=== PATIENT | male | born 1945 | race Caucasian/White ===

== ENCOUNTER 2018-06-12 09:04 | Observation (INO) ==
[2018-06-12] MEDS ORDERED: NITROGLYCERIN 2% OINT 1 INCH/GM PACK TOP STA (10:08)
[2018-06-12] MEDS ORDERED: ENOXAPARIN 80 MG/0.8 ML SYRINGE SUBCUT STA (10:08)
[2018-06-12] MEDS ORDERED: ASPIRIN CHEW 81 MG TABLET PO STA (10:08)
[2018-06-12 10:11] LABS: Basophils # 0.1 10*3/uL (0.0-0.2); Basophils % 0.8 % (0.0-0.8); Eosinophils # 0.2 10*3/uL (0.0-0.87); Eosinophils % 2.5 % (0.00-10.9); Hematocrit 35.3 VOL% (42.0-52.0); Hemoglobin 11.7 GM/DL (14.0-18.0); Immature Granulocytes % 0.8 %; Immature Granulocytes Absolute 0.06 #; Lymphocytes # 1.4 10*3/uL (1.4-4.0); Lymphocytes % 17.1 % (21.2-54.2); Mean Corpuscular HGB Conc 33.1 GM/DL (32-36); Mean Corpuscular Hemoglobin 31 PG (27-34); Mean Corpuscular Volume 94.1 FL (87-102); Mean Platelet Volume 9.1 FL (9.6-12.0); Monocytes # 0.6 10*3/uL (0.11-0.8); Monocytes % 7.1 % (1.7-12.7); Neutrophils # 5.7 10*3/uL (1.4-7.4); Neutrophils % 71.7 % (38.7-73.9); Platelet Count 226 T/CUMM (130-400); Red Blood Count 3.75 MC/CUMM (3.8-5.5); White Blood Count 7.9 T/CUMM (4-12)
[2018-06-12] MEDS ORDERED: ASPIRIN 325 MG TABLET ONE (10:14)
[2018-06-12 10:33] LABS: Alanine Aminotransferase 20 U/L (16-61); Albumin 3.7 G/DL (3.4-5.0); Alkaline Phosphatase 91 U/L (45-117); Aspartate Amino Transferase 17 U/L (0-37); Blood Urea Nitrogen 13 MG/DL (7-18); Calcium 8.7 MG/DL (8.5-10.1); Glucose 101 MG/DL (74-106); Osmolality,Calculated 278.4 MOS/KG (273-304); Potassium 4.3 MMOL/L (3.5-5.1); Sodium 140 MMOL/L (136-145); Total Protein 7.1 G/DL (6.4-8.3)
[2018-06-12 10:36] LABS: Troponin I 0.151 NG/ML (0.00-0.045)
[2018-06-12] MEDS ORDERED: ONDANSETRON 4 MG/2 ML VIAL IV PRN (12:17)
[2018-06-12] MEDS ORDERED: MAGNESIUM SULF RIDER 2 GM in PREMIX 1 EACH IV PRN ×2 (12:17→13:15)
[2018-06-12] MEDS ORDERED: ACETAMINOPHEN 325 MG TABLET PO PRN (12:17)
[2018-06-12] MEDS ORDERED: POTASSIUM CHLORIDE 20 MEQ TABLET PO PRN (12:17)
[2018-06-12] MEDS ORDERED: MAGNESIUM SULF RIDER 4 GM in PREMIX 1 EACH IV PRN (12:17)
[2018-06-12] MEDS ORDERED: BISACODYL 5 MG TABLET PO PRN (12:17)
[2018-06-12] MEDS ORDERED: diphenhydrAMINE CAP 25 MG CAPSULE PO PRN (12:17)
[2018-06-12] MEDS ORDERED: NITROGLYCERIN SL 0.4 MG TABLET SL PRN (12:50)
[2018-06-12] MEDS ORDERED: POTASSIUM CHLORIDE RIDER 10 MEQ in PREMIX 1 EACH IV PRN (13:15)
[2018-06-12 15:17] LABS: Troponin I 0.119 NG/ML (0.00-0.045)
[2018-06-12] MEDS ORDERED: INFLUENZA VIRUS VACCINE 0.5 ML SYRINGE IM ONE (15:27)
[2018-06-12] MEDS: CLOPIDOGREL 75 MG TABLET PO SCH (20:57)
[2018-06-12] MEDS: glyBURIDE 5 MG TABLET PO SCH (20:57)
[2018-06-12] MEDS: CARVEDILOL 12.5 MG TABLET PO SCH (20:57)
[2018-06-12] MEDS: NIACIN 500 MG TABLET PO SCH (20:57)
[2018-06-12] MEDS: SIMVASTATIN 20 MG TABLET PO SCH (20:57)
[2018-06-12] MEDS: rOPINIRole 1 MG TABLET PO SCH (20:58)
[2018-06-12] MEDS: ASPIRIN CHEW 81 MG TABLET PO SCH (20:58)
[2018-06-12] MEDS: AMITRIPTYLINE 25 MG TABLET PO SCH (20:58)
[2018-06-12] MEDS: INSULIN NPH 100 UNIT/ML SUBCUT SCH (20:59)
[2018-06-13 04:41] LABS: Basophils % 0.7 % (0.0-0.8); Eosinophils # 0.2 10*3/uL (0.0-0.87); Eosinophils % 3.1 % (0.00-10.9); Hematocrit 32.1 VOL% (42.0-52.0); Hemoglobin 10.3 GM/DL (14.0-18.0); Immature Granulocytes % 0.3 %; Immature Granulocytes Absolute 0.02 #; Lymphocytes # 1.3 10*3/uL (1.4-4.0); Lymphocytes % 21.2 % (21.2-54.2); Mean Corpuscular HGB Conc 32.1 GM/DL (32-36); Mean Corpuscular Hemoglobin 30 PG (27-34); Mean Corpuscular Volume 94.1 FL (87-102); Mean Platelet Volume 9.2 FL (9.6-12.0); Monocytes # 0.8 10*3/uL (0.11-0.8); Monocytes % 12.8 % (1.7-12.7); Neutrophils # 3.8 10*3/uL (1.4-7.4); Neutrophils % 61.9 % (38.7-73.9); Platelet Count 197 T/CUMM (130-400); Red Blood Count 3.41 MC/CUMM (3.8-5.5); Red Cell Distribution Width 13.7 % (9.3-17.3); White Blood Count 6.1 T/CUMM (4-12)
[2018-06-13 05:09] LABS: Calcium 7.8 MG/DL (8.5-10.1); Osmolality,Calculated 287.5 MOS/KG (273-304); Potassium 4.6 MMOL/L (3.5-5.1); Risk Ratio 2.95; VLDL CHOLESTEROL 22.4 MG/DL
[2018-06-13] MEDS: INSULIN NPH 100 UNIT/ML SUBCUT SCH ×2 (08:44→21:47)
[2018-06-13] MEDS: glyBURIDE 5 MG TABLET PO SCH ×2 (08:46→21:48)
[2018-06-13] MEDS: PANTOPRAZOLE 40 MG TABLET PO SCH (08:47)
[2018-06-13] MEDS: CARVEDILOL 12.5 MG TABLET PO SCH ×2 (08:47→18:29)
[2018-06-13] MEDS ORDERED: LOSARTAN/HCTZ 50-12.5 MG TABLET PO SCH (09:00)
[2018-06-13] MEDS ORDERED: amLODIPine 5 MG TABLET PO SCH (09:00)
[2018-06-13] MEDS ORDERED: diphenhydrAMINE CAP 25 MG CAPSULE PO ONE (13:15)
[2018-06-13] MEDS ORDERED: DIAZEPAM 5 MG TABLET PO ONE (13:15)
[2018-06-13] MEDS ORDERED: LIDOCAINE 1% 20 ML VIAL ONE (16:06)
[2018-06-13] MEDS ORDERED: fentaNYL 100 MCG/2 ML VIAL ONE (17:03)
[2018-06-13] MEDS ORDERED: MIDAZOLAM 2 MG/2 ML VIAL ONE (17:03)
[2018-06-13] MEDS ORDERED: HEPARIN 5,000 UNIT/1 ML VIAL ONE (17:04)
[2018-06-13] MEDS ORDERED: FUROSEMIDE 20 MG/2 ML VIAL IV ONE (18:42)
[2018-06-13] MEDS: rOPINIRole 1 MG TABLET PO SCH (21:47)
[2018-06-13] MEDS: LOSARTAN 25 MG TABLET PO SCH (21:48)
[2018-06-13] MEDS: NIACIN 500 MG TABLET PO SCH (21:48)
[2018-06-13] MEDS: CLOPIDOGREL 75 MG TABLET PO SCH (21:48)
[2018-06-13] MEDS: SIMVASTATIN 20 MG TABLET PO SCH (21:48)
[2018-06-13] MEDS: AMITRIPTYLINE 25 MG TABLET PO SCH (21:48)
[2018-06-13] MEDS: ASPIRIN CHEW 81 MG TABLET PO SCH (21:48)
[2018-06-13] MEDS: ZALEPLON 5 MG CAPSULE PO PRN (21:48)
[2018-06-14] MEDS: CARVEDILOL 25 MG TABLET PO SCH ×3 (00:59→17:10)
[2018-06-14 03:33] LABS: Basophils % 0.5 % (0.0-0.8); Eosinophils # 0.3 10*3/uL (0.0-0.87); Eosinophils % 4.4 % (0.00-10.9); Hematocrit 34.8 VOL% (42.0-52.0); Hemoglobin 11.5 GM/DL (14.0-18.0); Immature Granulocytes % 0.3 %; Immature Granulocytes Absolute 0.02 #; Lymphocytes # 1.4 10*3/uL (1.4-4.0); Lymphocytes % 23.3 % (21.2-54.2); Mean Corpuscular Hemoglobin 31 PG (27-34); Mean Corpuscular Volume 93.8 FL (87-102); Mean Platelet Volume 9.3 FL (9.6-12.0); Monocytes # 0.7 10*3/uL (0.11-0.8); Monocytes % 10.9 % (1.7-12.7); Neutrophils # 3.7 10*3/uL (1.4-7.4); Neutrophils % 60.6 % (38.7-73.9); Platelet Count 190 T/CUMM (130-400); Red Blood Count 3.71 MC/CUMM (3.8-5.5); Red Cell Distribution Width 13.7 % (9.3-17.3); White Blood Count 6.2 T/CUMM (4-12)
[2018-06-14 03:54] LABS: Calcium 8.3 MG/DL (8.5-10.1); Osmolality,Calculated 280.8 MOS/KG (273-304); Potassium 4.1 MMOL/L (3.5-5.1)
[2018-06-14] MEDS ORDERED: FUROSEMIDE 20 MG/2 ML VIAL IV SCH ×2 (09:00→12:09)
[2018-06-14] MEDS: glyBURIDE 5 MG TABLET PO SCH ×2 (09:17→20:36)
[2018-06-14] MEDS: SPIRONOLACTONE 25 MG TABLET PO SCH ×2 (09:18→20:35)
[2018-06-14] MEDS: LOSARTAN 25 MG TABLET PO SCH ×2 (09:19→20:35)
[2018-06-14] MEDS: PANTOPRAZOLE 40 MG TABLET PO SCH (09:19)
[2018-06-14] MEDS: INSULIN NPH 100 UNIT/ML SUBCUT SCH ×2 (09:19→20:36)
[2018-06-14] MEDS ORDERED: FUROSEMIDE 40 MG/4 ML VIAL IV ONE (12:06)
[2018-06-14] MEDS ORDERED: AZITHROMYCIN 250 MG TABLET PO ONE (12:30)
[2018-06-14] MEDS: INSULIN REGULAR 100 UNIT/ML SUBCUT SCH ×2 (17:10→20:36)
[2018-06-14] MEDS: rOPINIRole 1 MG TABLET PO SCH (20:35)
[2018-06-14] MEDS: ZALEPLON 5 MG CAPSULE PO PRN (20:35)
[2018-06-14] MEDS: AMITRIPTYLINE 25 MG TABLET PO SCH (20:35)
[2018-06-14] MEDS: SIMVASTATIN 20 MG TABLET PO SCH (20:35)
[2018-06-14] MEDS: ASPIRIN CHEW 81 MG TABLET PO SCH (20:36)
[2018-06-14] MEDS: NIACIN 500 MG TABLET PO SCH (20:36)
[2018-06-14] MEDS: CLOPIDOGREL 75 MG TABLET PO SCH (20:36)
[2018-06-15 04:08] LABS: Calcium 7.8 MG/DL (8.5-10.1); Osmolality,Calculated 282.3 MOS/KG (273-304); Potassium 3.7 MMOL/L (3.5-5.1)
[2018-06-15 04:11] LABS: Calcium 7.6 MG/DL (8.5-10.1); Osmolality,Calculated 282.3 MOS/KG (273-304); Potassium 3.6 MMOL/L (3.5-5.1)
[2018-06-15] MEDS: INSULIN REGULAR 100 UNIT/ML SUBCUT SCH (07:56)
[2018-06-15 08:00] VITALS: BP 112/53
[2018-06-15] MEDS: PANTOPRAZOLE 40 MG TABLET PO SCH (08:47)
[2018-06-15] MEDS: SPIRONOLACTONE 25 MG TABLET PO SCH (08:47)
[2018-06-15] MEDS: CARVEDILOL 25 MG TABLET PO SCH (08:48)
[2018-06-15] MEDS: glyBURIDE 5 MG TABLET PO SCH (08:48)
[2018-06-15] MEDS: LOSARTAN 25 MG TABLET PO SCH (08:48)
[2018-06-15] MEDS: INSULIN NPH 100 UNIT/ML SUBCUT SCH (08:49)
[2018-06-15] MEDS ORDERED: metFORMIN 500 MG TABLET PO SCH (09:00)
[2018-06-15] MEDS ORDERED: AZITHROMYCIN 250 MG TABLET PO SCH (09:00)
== END 2018-06-15 11:10 | disposition home or self-care (01) ==
LOC: N.EDINP 09:04 → N.ED 09:04 → N.TELEN 14:49
PROVIDERS: ADMIT Internal Medicine Cardiovascular Disease; ATTEND Internal Medicine Cardiovascular Disease

== ENCOUNTER 2022-02-27 10:01 | Inpatient (IN) ==
[2022-02-27] MEDS ORDERED: MORPHINE 2 MG/1 ML SYRINGE IV PRN (11:11)
[2022-02-27] MEDS ORDERED: BISACODYL 5 MG TABLET PO PRN (11:11)
[2022-02-27] MEDS ORDERED: ALUMINUM/MAGNES/SIMETH MAX STR 30 ML UDCUP PO PRN (11:11)
[2022-02-27] MEDS ORDERED: ONDANSETRON 4 MG/2 ML VIAL IV PRN (11:11)
[2022-02-27] MEDS ORDERED: diphenhydrAMINE CAP 25 MG CAPSULE PO PRN (11:11)
[2022-02-27] MEDS ORDERED: ZALEPLON 5 MG CAPSULE PO PRN (11:11)
[2022-02-27] MEDS ORDERED: ACETAMINOPHEN 325 MG TABLET PO PRN (11:11)
[2022-02-27] MEDS ORDERED: POTASSIUM CHLORIDE 20 MEQ TABLET PO PRN (11:14)
[2022-02-27] MEDS ORDERED: MAGNESIUM SULF RIDER 4 GM/100 ML PREMIX IV PRN (11:14)
[2022-02-27] MEDS ORDERED: GLUCAGON 1 MG VIAL IM PRN (11:14)
[2022-02-27] MEDS ORDERED: MAGNESIUM SULF RIDER 2 GM/50 ML PREMIX IV PRN (11:14)
[2022-02-27] MEDS ORDERED: DEXTROSE 10% 250 ML BAG IV PRN (12:21)
[2022-02-27 13:27] LABS: Basophils % 0.1 % (0.0-0.8); Hemoglobin 10.9 GM/DL (14.0-18.0); Immature Granulocytes % 1.5 %; Immature Granulocytes Absolute 0.21 #; Lymphocytes # 0.5 10*3/uL (1.4-4.0); Lymphocytes % 3.8 % (21.2-54.2); Mean Corpuscular HGB Conc 32.1 GM/DL (32-36); Mean Corpuscular Volume 97.1 FL (87-102); Mean Platelet Volume 10.3 FL (9.6-12.0); Monocytes # 1.2 10*3/uL (0.11-0.8); Monocytes % 8.5 % (1.7-12.7); Neutrophils % 86.1 % (38.7-73.9); Platelet Count 206 T/CUMM (130-400); White Blood Count 13.8 T/CUMM (4-12)
[2022-02-27 13:47] LABS: Albumin 2.6 G/DL (3.4-5.0); Bilirubin,Total 3.2 MG/DL (0.20-1.00); Calcium 8.6 MG/DL (8.5-10.1); Osmolality,Calculated 286.1 MOS/KG (273-304); Potassium 3.4 MMOL/L (3.5-5.1); Total Protein 6.7 G/DL (6.4-8.2)
[2022-02-27 14:10] LABS: Albumin 2.6 G/DL (3.4-5.0); Bilirubin,Direct 2.26 MG/DL (0.0-0.20); Bilirubin,Indirect 0.9 MG/DL (0.0-1.0); Bilirubin,Total 3.2 MG/DL (0.20-1.00); Free T4 (Free Thyroxine) 1.56 NG/DL (0.76-1.46); Total Protein 6.8 G/DL (6.4-8.2)
[2022-02-27 14:27] LABS: Anisocytosis 1+; Hypochromia 1+; Platelet Estimate Normal; Polychromasia Slight
[2022-02-27] MEDS: INSULIN REGULAR 100 UNIT/ML SUBCUT SCH ×2 (14:27→17:17)
[2022-02-27] MEDS: metOLazone 5 MG TABLET PO SCH (17:14)
[2022-02-27] MEDS: FUROSEMIDE 40 MG/4 ML VIAL IV SCH (17:15)
[2022-02-27] MEDS ORDERED: ALBUTEROL/IPRATROPIUM 3 ML NEB RESP TX PRN (18:15)
[2022-02-27] MEDS: INSULIN LISPRO 100 UNIT/ML SUBCUT SCH ×2 (19:26→21:52)
[2022-02-27] MEDS: cefTRIAXone 1,000 MG in SODIUM CHLORIDE 0.9% 100 ML IV SCH ×2 (19:35→21:29)
[2022-02-27] MEDS ORDERED: ENOXAPARIN 40 MG/0.4 ML SYRINGE SUBCUT SCH (21:00)
[2022-02-27] MEDS ORDERED: INSULIN LISPRO 100 UNIT/ML SUBCUT SCH (21:00)
[2022-02-27 21:09] LABS: Bilirubin,Urine Negative (Negative); Blood, Urine Negative (Negative); Glucose,Urine (UA) 500 mg/dL (Negative); Ketones,Urine Negative (Negative); Nitrite,Urine Negative (Negative); Protein,Urine Negative (Negative); Urine Appearance Clear (Clear); Urine Color Yellow (Yellow); Urine Specific Gravity <= 1.005 (1.001-1.035); Urine pH 5.5 (4.5-8.0)
[2022-02-27 21:11] LABS: Mucus,Urine Occasional /LPF (Occasional); RBC,Urine 2 /HPF (0-4); Squamous Epithelial Cell,Urine Occasional /HPF (0-10)
[2022-02-27] MEDS: GABAPENTIN 400 MG CAPSULE PO SCH (21:28)
[2022-02-27] MEDS: carvediloL 3.125 MG TABLET PO SCH (21:28)
[2022-02-27] MEDS: APIXABAN 5 MG TABLET PO SCH (21:29)
[2022-02-27] MEDS: PRAMIPEXOLE 0.25 MG TABLET PO SCH (21:29)
[2022-02-27] MEDS: INSULIN GLARGINE 100 UNIT/ML SUBCUT SCH (21:52)
[2022-02-28] MEDS: INSULIN LISPRO 100 UNIT/ML SUBCUT SCH ×6 (01:17→20:29)
[2022-02-28 04:52] LABS: Basophils # 0.1 10*3/uL (0.0-0.2); Basophils % 0.4 % (0.0-0.8); Eosinophils % 0.1 % (0.00-10.9); Hematocrit 32.3 VOL% (42.0-52.0); Hemoglobin 10.6 GM/DL (14.0-18.0); Immature Granulocytes Absolute 0.41 #; Lymphocytes # 1.2 10*3/uL (1.4-4.0); Lymphocytes % 8.9 % (21.2-54.2); Mean Corpuscular HGB Conc 32.8 GM/DL (32-36); Mean Corpuscular Volume 93.9 FL (87-102); Mean Platelet Volume 10.7 FL (9.6-12.0); Monocytes # 1.5 10*3/uL (0.11-0.8); Monocytes % 11.1 % (1.7-12.7); Neutrophils % 76.5 % (38.7-73.9); Platelet Count 222 T/CUMM (130-400); Red Blood Count 3.44 MC/CUMM (3.8-5.5); Red Cell Distribution Width 14.8 % (9.3-17.3); White Blood Count 13.7 T/CUMM (4-12)
[2022-02-28 05:17] LABS: Albumin 2.4 G/DL (3.4-5.0); Bilirubin,Total 2.3 MG/DL (0.20-1.00); Calcium 8.4 MG/DL (8.5-10.1); Osmolality,Calculated 272.7 MOS/KG (273-304); Potassium 2.8 MMOL/L (3.5-5.1); Risk Ratio 7.14; Total Protein 6.1 G/DL (6.4-8.2); VLDL Cholesterol 22.4 MG/DL
[2022-02-28] MEDS ORDERED: GLUCAGON 1 MG VIAL IM PRN (06:15)
[2022-02-28] MEDS ORDERED: DEXTROSE 50% 25 GM/50 ML VIAL IV PRN (06:15)
[2022-02-28] MEDS ORDERED: LEVOTHYROXINE 50 MCG TABLET PO SCH (06:30)
[2022-02-28] MEDS ORDERED: POTASSIUM CHLORIDE 20 MEQ TABLET PO ONE (08:10)
[2022-02-28] MEDS: ISOSORBIDE MONONITRATE 30 MG TABLET PO SCH (09:48)
[2022-02-28] MEDS: APIXABAN 5 MG TABLET PO SCH ×2 (09:48→20:25)
[2022-02-28] MEDS: carvediloL 3.125 MG TABLET PO SCH ×2 (09:48→20:24)
[2022-02-28] MEDS: metOLazone 5 MG TABLET PO SCH (09:48)
[2022-02-28] MEDS: ASPIRIN EC 81 MG TABLET PO SCH (09:48)
[2022-02-28] MEDS: FUROSEMIDE 40 MG/4 ML VIAL IV SCH ×2 (09:48→17:37)
[2022-02-28] MEDS: DAPAGLIFLOZIN 10 MG TABLET PO SCH (09:48)
[2022-02-28] MEDS: PANTOPRAZOLE 40 MG TABLET PO SCH (09:48)
[2022-02-28] MEDS: AZITHROMYCIN 250 MG TABLET PO SCH (09:48)
[2022-02-28] MEDS: cefTRIAXone 2,000 MG in SODIUM CHLORIDE 0.9% 100 ML IV SCH (13:03)
[2022-02-28] MEDS ORDERED: metOLazone 5 MG TABLET PO SCH ×2 (14:30→15:30)
[2022-02-28] MEDS: GABAPENTIN 400 MG CAPSULE PO SCH (20:25)
[2022-02-28] MEDS: PRAMIPEXOLE 0.25 MG TABLET PO SCH (20:26)
[2022-02-28] MEDS: INSULIN GLARGINE 100 UNIT/ML SUBCUT SCH (20:28)
[2022-03-01 05:34] LABS: Basophils # 0.1 10*3/uL (0.0-0.2); Basophils % 0.7 % (0.0-0.8); Eosinophils % 0.4 % (0.00-10.9); Hematocrit 33.5 VOL% (42.0-52.0); Hemoglobin 11.3 GM/DL (14.0-18.0); Immature Granulocytes % 2.4 %; Immature Granulocytes Absolute 0.25 #; Lymphocytes # 1.1 10*3/uL (1.4-4.0); Mean Corpuscular HGB Conc 33.7 GM/DL (32-36); Mean Corpuscular Volume 91.3 FL (87-102); Mean Platelet Volume 10.7 FL (9.6-12.0); Monocytes # 1.3 10*3/uL (0.11-0.8); Monocytes % 12.7 % (1.7-12.7); Neutrophils % 73.8 % (38.7-73.9); Platelet Count 238 T/CUMM (130-400); Red Blood Count 3.67 MC/CUMM (3.8-5.5); Red Cell Distribution Width 14.7 % (9.3-17.3); White Blood Count 10.5 T/CUMM (4-12)
[2022-03-01 06:01] LABS: Albumin 2.4 G/DL (3.4-5.0); Bilirubin,Total 1.7 MG/DL (0.20-1.00); Calcium 8.6 MG/DL (8.5-10.1); Osmolality,Calculated 278.8 MOS/KG (273-304); Potassium 2.6 MMOL/L (3.5-5.1); Total Protein 6.5 G/DL (6.4-8.2)
[2022-03-01] MEDS ORDERED: POTASSIUM CHLORIDE 20 MEQ TABLET PO ONE ×6 (06:57→13:00)
[2022-03-01] MEDS: FUROSEMIDE 40 MG/4 ML VIAL IV SCH ×2 (07:29→17:58)
[2022-03-01] MEDS: INSULIN LISPRO 100 UNIT/ML SUBCUT SCH ×4 (08:01→22:11)
[2022-03-01] MEDS: DAPAGLIFLOZIN 10 MG TABLET PO SCH (09:43)
[2022-03-01] MEDS: APIXABAN 5 MG TABLET PO SCH ×2 (09:44→22:08)
[2022-03-01] MEDS: SPIRONOLACTONE 25 MG TABLET PO SCH ×2 (09:44→22:09)
[2022-03-01] MEDS: AZITHROMYCIN 250 MG TABLET PO SCH (09:44)
[2022-03-01] MEDS: PANTOPRAZOLE 40 MG TABLET PO SCH (09:44)
[2022-03-01] MEDS: ASPIRIN EC 81 MG TABLET PO SCH (09:44)
[2022-03-01] MEDS: ISOSORBIDE MONONITRATE 30 MG TABLET PO SCH (09:45)
[2022-03-01] MEDS: carvediloL 3.125 MG TABLET PO SCH ×2 (09:45→22:09)
[2022-03-01] MEDS: cefTRIAXone 2,000 MG in SODIUM CHLORIDE 0.9% 100 ML IV SCH (09:49)
[2022-03-01 15:04] LABS: Calcium 8.4 MG/DL (8.5-10.1); Osmolality,Calculated 287.1 MOS/KG (273-304); Potassium 3.3 MMOL/L (3.5-5.1)
[2022-03-01] MEDS ORDERED: sitaGLIPtin 25 MG TABLET PO SCH (21:00)
[2022-03-01] MEDS ORDERED: INSULIN GLARGINE 100 UNIT/ML SUBCUT SCH (21:00)
[2022-03-01] MEDS: PRAMIPEXOLE 0.25 MG TABLET PO SCH (22:08)
[2022-03-01] MEDS: GABAPENTIN 400 MG CAPSULE PO SCH (22:09)
[2022-03-02 05:44] LABS: Basophils # 0.1 10*3/uL (0.0-0.2); Basophils % 0.8 % (0.0-0.8); Eosinophils % 0.3 % (0.00-10.9); Hematocrit 36.3 VOL% (42.0-52.0); Hemoglobin 11.7 GM/DL (14.0-18.0); Immature Granulocytes % 6.1 %; Immature Granulocytes Absolute 0.81 #; Lymphocytes # 0.9 10*3/uL (1.4-4.0); Lymphocytes % 6.8 % (21.2-54.2); Mean Corpuscular HGB Conc 32.2 GM/DL (32-36); Mean Platelet Volume 10.7 FL (9.6-12.0); Monocytes # 1.6 10*3/uL (0.11-0.8); Monocytes % 12.3 % (1.7-12.7); Neutrophils % 73.7 % (38.7-73.9); Platelet Count 282 T/CUMM (130-400); Red Blood Count 3.82 MC/CUMM (3.8-5.5); Red Cell Distribution Width 15.1 % (9.3-17.3); White Blood Count 13.3 T/CUMM (4-12)
[2022-03-02 05:59] LABS: Calcium 8.5 MG/DL (8.5-10.1); Osmolality,Calculated 277.7 MOS/KG (273-304)
[2022-03-02 06:02] LABS: Albumin 2.5 G/DL (3.4-5.0); Bilirubin,Direct 1.02 MG/DL (0.0-0.20); Bilirubin,Indirect 0.4 MG/DL (0.0-1.0); Bilirubin,Total 1.4 MG/DL (0.20-1.00); Total Protein 6.8 G/DL (6.4-8.2)
[2022-03-02 06:05] LABS: Albumin 2.5 G/DL (3.4-5.0); Bilirubin,Total 1.5 MG/DL (0.20-1.00); Calcium 8.7 MG/DL (8.5-10.1); Osmolality,Calculated 279.5 MOS/KG (273-304); Potassium 3.2 MMOL/L (3.5-5.1)
[2022-03-02 06:56] LABS: Eosinophils 2 % (0-10); Lymphocytes 4 % (20-55); Total Cells Counted 100
[2022-03-02 06:57] LABS: Platelet Estimate Adequate
[2022-03-02] MEDS ORDERED: POTASSIUM CHLORIDE 20 MEQ TABLET PO ONE ×4 (08:00→12:00)
[2022-03-02] MEDS ORDERED: FUROSEMIDE 40 MG TABLET PO SCH (09:00)
[2022-03-02] MEDS ORDERED: CHOLECALCIFEROL 1,000 UNIT TABLET PO SCH (09:00)
[2022-03-02] MEDS ORDERED: SPIRONOLACTONE 50 MG TABLET PO SCH (09:00)
[2022-03-02] MEDS: ISOSORBIDE MONONITRATE 30 MG TABLET PO SCH (10:15)
[2022-03-02] MEDS: AZITHROMYCIN 250 MG TABLET PO SCH (10:15)
[2022-03-02] MEDS: cefTRIAXone 2,000 MG in SODIUM CHLORIDE 0.9% 100 ML IV SCH (10:15)
[2022-03-02] MEDS: carvediloL 3.125 MG TABLET PO SCH (10:16)
[2022-03-02] MEDS: PANTOPRAZOLE 40 MG TABLET PO SCH (10:16)
[2022-03-02] MEDS: APIXABAN 5 MG TABLET PO SCH (10:16)
[2022-03-02] MEDS: INSULIN LISPRO 100 UNIT/ML SUBCUT SCH ×2 (10:17→13:07)
[2022-03-02] MEDS: ASPIRIN EC 81 MG TABLET PO SCH (10:17)
[2022-03-02] MEDS: DAPAGLIFLOZIN 10 MG TABLET PO SCH (10:17)
[2022-03-02] MEDS ORDERED: TUBERCULIN SKIN TEST 0.1 ML SYRINGE INTRADERM ONE (12:45)
[2022-03-02 13:37] VITALS: BP 110/68
[2022-03-03] MEDS ORDERED: POTASSIUM CHLORIDE 20 MEQ TABLET PO SCH (09:00)
== END 2022-03-02 15:50 | disposition swing bed (61) | DRG 291 ==
LOC: N.TELES 12:15
PROVIDERS: ADMIT Internal Medicine Cardiovascular Disease; ATTEND Internal Medicine Cardiovascular Disease